=== PATIENT | female | born 1945 | race Caucasian/White ===

== ENCOUNTER 2018-04-22 12:12 | Emergency (ER) | payer MEDICARE, BC ==
[2018-04-22] MEDS ORDERED: Acetaminophen 325 MG TAB ONE (14:04)
--- NOTE | 2018-04-22 14:22 | RAD ---
LEFT KNEE THREE VIEWS: Date: 04-22-18 Comparison: None. History: Injury, trauma, pain. FINDINGS: There is a lateral tibial plateau fracture on the left with lateral displacement of the fracture frag ment of approximately 9 mm. No evidence for dislocation. IMPRESSION: Lateral tibial plateau fracture. Orthopedic consultation is recommended. POS: [facility]
== END 2018-04-22 14:47 | disposition home or self-care (01) ==
LOC: BURERS 12:12
DX: S82.142A Displaced bicondylar fracture of left tibia, initial encounter for closed fracture (principal); I10 Essential (primary) hypertension; F41.9 Anxiety disorder, unspecified; Z79.899 Other long term (current) drug therapy; W54.1XXA Struck by dog, initial encounter